=== PATIENT | male | born 1975 | race Caucasian/White ===

== ENCOUNTER 2022-08-30 15:08 | Emergency (ER) | payer BC ==
[~2022-08-30] VITALS: Ht 182.9 cm; Wt 113.6 kg
[~2022-08-30 15:08] MED LIST: NO HOME MEDICATIONS; PERCOCET 325 MG1 TA2 PO
[2022-08-30 16:48] LABS: BASO # 0.1 K/mm3 (0.0-0.2); EOS # 0.2 K/mm3 (0.0-0.7); EOS % 1.9 % (0.0-4.0); GRAN # 5.9 K/mm3 (1.4-6.5); GRAN % 70.8 % (42.2-75.2); HEMATOCRIT 42.5 % (42.0-52.0); HEMOGLOBIN 15.1 g/dl (13.5-18.0); LYMPH # 1.6 K/mm3 (1.2-3.4); LYMPH % 18.6 % (20.0-51.0); MEAN CELL VOLUME 86 fl (80.0-100.0); MEAN CORPUSCULAR HEMOGLOBIN 30 pg (27-31); MEAN CORPUSCULAR HGB CONC 36 g/dl (33.0-37.0); MEAN PLATELET VOLUME 10.5 fl (7.4-10.4); MONO # 0.6 K/mm3 (0.1-0.6); MONO % 7.3 % (1.7-9.3); PLATELET COUNT 272 K/mm3 (130-400); RED BLOOD COUNT 4.97 M/mm3 (4.20-5.60); REDCELL DISTRIBUTION WIDTH-CV 12.6 % (11.5-14.5)
[2022-08-30 17:01] LABS: ALBUMIN 3.9 gm/dL (3.5-5.0); BILIRUBIN,TOTAL 1.7 mg/dL (0.2-1.2); CALCIUM 8.8 mg/dL (8.4-10.2); CREATININE, serum 0.89 mg/dL (0.72-1.25); POTASSIUM 3.8 mmol/L (3.5-4.5); TOTAL PROTEIN 7.5 gm/dL (6.2-8.1)
[2022-08-30 17:07] LABS: TROPONIN-I 0.029 ng/mL (0.00-0.033)
[2022-08-30 20:46] VITALS: BP 125/86; PULSE 71; TEMP 98.4
== END 2022-08-30 20:49 | disposition home or self-care (01) ==
LOC: COL.ER 15:08
PROVIDERS: Emergency Medicine
DX: R07.89 Other chest pain (principal); I10 Essential (primary) hypertension; E78.00 Pure hypercholesterolemia, unspecified; Z28.310 Unvaccinated for COVID-19; Z79.82 Long term (current) use of aspirin
CPT/HCPCS: J7030

== ENCOUNTER 2024-07-22 08:12 | Day surgery (SDC) | payer BC ==
[2024-07-22] VITALS (8 sets, daily range): BP systolic 105–132; BP diastolic 64–83; PULSE 53–67; TEMP 97.9
[~2024-07-22] VITALS: Ht 183 cm; Wt 112.0 kg
[2024-07-22] MEDS ORDERED: 1/2 NS 1,000 ML IV SCH (08:30)
[2024-07-22 09:25] LABS: INR 1.1 (0.8-3.0)
[2024-07-22 09:26] LABS: HEMATOCRIT 44.4 % (42.0-52.0); HEMOGLOBIN 15.9 g/dl (13.5-18.0); MEAN CELL VOLUME 87 fl (80.0-100.0); MEAN CORPUSCULAR HEMOGLOBIN 31 pg (27-31); MEAN CORPUSCULAR HGB CONC 36 g/dl (33.0-37.0); MEAN PLATELET VOLUME 10.3 fl (7.4-10.4); PLATELET COUNT 252 K/mm3 (130-400); REDCELL DISTRIBUTION WIDTH-CV 12.3 % (11.5-14.5)
[2024-07-22 09:27] LABS: PARTIAL THROMBOPLASTIN TIME 33.3 SECONDS (26.0-37.0)
[2024-07-22] MEDS ORDERED: COZAAR 50MG50 MG/TAB PO (09:27)
[2024-07-22] MEDS ORDERED: TOPROL XL 50MG50 MG PO (09:28)
[2024-07-22] MEDS ORDERED: NITROSTAT0.4 MG/TAB SL ×2 (09:29→14:39)
[2024-07-22] MEDS ORDERED: ASPIRIN E.C. 8181 MG PO (09:30)
[2024-07-22] MEDS ORDERED: LIPITOR 80MG80 MG PO (09:31)
[2024-07-22] MEDS ORDERED: OMEGA-3 FISH1000 MG PO (09:31)
[2024-07-22 09:41] LABS: CALCIUM 9.7 mg/dL (8.4-10.2); CREATININE, serum 0.93 mg/dL (0.72-1.25); POTASSIUM 4.6 mEq/L (3.5-4.5)
[2024-07-22] MEDS ORDERED: niCARdipine (Cath Lab) 100 MCG/ML 10 ML VIAL IA SCH (11:53)
[2024-07-22] MEDS ORDERED: Heparin 1,000 UNITS/ML 10 ML Multi-Dose VIAL IV SCH (11:56)
[2024-07-22] MEDS ORDERED: Midazolam 2 MG/2 ML VIAL IV SCH (12:34)
[2024-07-22] MEDS ORDERED: fentaNYL 50 MCG/ML 2 ML VIAL IV SCH (12:35)
[2024-07-22] MEDS ORDERED: Iohexol 350 - 100 ML VIAL INCOR ONE (12:40)
--- NOTE | 2024-07-22 13:00 | NUR ---
PT TO [facility] VIA BED FROM [facility], ALERT, AWAKE, RADIAL BAND ON RIGHT WITH NO SWELLING OR OOZING NOTED, CALL LIGHT IN REACH, TAKES WATER, HAS NO C/O OR REQUESTS
--- NOTE | 2024-07-22 13:10 | NUR ---
Nir is transferred back to express unit after LHC with Dr. Segura. He is awake and alert, pwd with reg and unlabored resps. TR band to rt wrist, cms intact distal. BS report to Tara SOARES.
--- NOTE | 2024-07-22 14:15 | NUR ---
CON'T SAME, DECLINED MEAL. RESTS IN BED, NO C/O
--- NOTE | 2024-07-22 15:00 | NUR ---
RELEASED 2CC OF AIR WITH NO SIGNS OF BLEEDING, ADDITIONAL 2CC RELEASED WITH NO PROBLEMS, WILL CON'T TO MONITOR. REVIEWED DISCHARGE INST. 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 FOLLOWUP APPT ALSO MADE, WITH VERBAL UNDERSTANDING
--- NOTE | 2024-07-22 15:30 | NUR ---
AIR COMPLETELY REMOVED FROM BAND, BANDAID PLACED WITH COBAN FOR SUPPORT. PT UP IN ROOM DRESSED, IV D'CD INTACT. HAS NO C/O OR QUESTIONS, DISCHARGED AT 1535 VIA W/C TO CAR WITH SON
== END 2024-07-22 15:40 | disposition home or self-care (01) ==
LOC: COL.CAR 08:12
PROVIDERS: Internal Medicine Cardiovascular Disease
DX: R94.39 Abnormal result of other cardiovascular function study (principal); R07.9 Chest pain, unspecified; Z95.5 Presence of coronary angioplasty implant and graft; Z87.891 Personal history of nicotine dependence
CPT/HCPCS: C1769; J1644; J2250; J2404; J3010; Q9967